=== PATIENT | male | born 1960 | race Two or more races ===

== ENCOUNTER 2020-08-27 14:04 | Inpatient (IN) | payer MEDICAID, OTHER ==
[~2020-08-27] VITALS: Ht 175.3 cm; Wt 63.1 kg
[2020-08-27] MEDS ORDERED: cefTRIAXone 1GM/50ML D5W 50 ML IV ONE (14:15)
[2020-08-27 15:05] LABS: Basophils # (auto) 0 10 ^3/uL (0-0.2); Basophils % (auto) 0.4 % (0.0-2.0); Eosinophils # (auto) 0.3 10 ^3/uL (0-0.8); Eosinophils % (auto) 3.8 % (0.0-7.0); Hematocrit 43.5 % (41.0-53.0); Hemoglobin 14.3 g/dL (13.5-17.5); Lymphocytes # (auto) 1.5 10 ^3/uL (0.4-5.4); Lymphocytes % (auto) 21.9 % (10.0-50.0); Mean Corpuscular Hemoglobin 27.4 pg (28.0-32.0); Mean Corpuscular Hgb Conc. 32.8 g/dL (32.0-36.0); Mean Corpuscular Volume 83.4 fL (80.0-100.0); Monocytes # (auto) 0.3 10 ^3/uL (0-1.3); Monocytes % (auto) 4.3 % (0.0-12.0); Neutrophils # (auto) 4.9 10 ^3/uL (1.6-8.6); Neutrophils % (auto) 69.6 % (37.0-80.0); Platelet Count (auto) 362 10^3/uL (140-450); Red Blood Cells 5.22 10^6/uL (4.5-5.90); Red Cell Distribution Width 15.4 % (11.8-14.3)
[2020-08-27 15:14] LABS: Albumin 3.3 g/dL (3.4-5.0); Anion Gap 5 (5-15); Aspartate Aminotransferase 12 U/L (15-37); Blood Urea Nitrogen 9 mg/dL (7-18); Calcium 8.7 mg/dL (8.5-10.1); Carbon Dioxide 23 mmol/L (21-32); Chloride 112 mmol/L (98-107); Glucose 94 mg/dL (74-106); Potassium 3.7 mmol/L (3.5-5.1); Sodium 140 mmol/L (136-145)
[2020-08-27 15:16] LABS: INR 0.97 (0.9-1.15); Partial Thromboplastin Time 23.9 sec (23.0-31.2)
[2020-08-27 15:24] LABS: Alanine Aminotransferase 14 U/L (16-61); Alkaline Phosphatase 149 U/L (45-117); Bilirubin, Total 0.2 mg/dL (0.2-1.0); CRP High Sensitivity 1.48 mg/dL (< 0.3); GFR African American 176 mL/min; GFR Non-African American 146 mL/min; Lactate Dehydrogenase 165 U/L (87-241); Total Protein 7.8 g/dL (6.4-8.2)
[2020-08-27] MEDS ORDERED: AZITHROMYCIN 500MG/ 250ML 250 ML IV ONE (16:00)
[2020-08-27] MEDS ORDERED: DexAMETHasone SOD PHOS 10MG/1ML VIAL INJ IV ONE (16:00)
[2020-08-27] MEDS ORDERED: ASPirin 81 mg TAB PO ONE (16:00)
[2020-08-27 16:31] LABS: Urine WBC None Seen /hpf (0 - 3)
[2020-08-27 16:38] LABS: Urine Bacteria NONE SEEN /hpf (None Seen); Urine Blood Negative /uL (Negative); Urine Specific Gravity 1.007 (1.001-1.035)
[2020-08-27] MEDS ORDERED: MORPHINE SULF INJ 2 MG/ML SYRINGE 1ML IV ONE (16:45)
[2020-08-27] MEDS ORDERED: ONDANSETRON HCL 4 MG/2 ML VIAL IV ONE (16:45)
[2020-08-27] MEDS ORDERED: ENOXAPARIN SOD 80 MG/0.8ML SYRINGE SC ONE (17:30)
[2020-08-27] MEDS ORDERED: IOHEXOL 350 MG/ML 100ML IJ ONE (17:46)
[2020-08-27] MEDS ORDERED: NITROGLYCERIN 0.4 MG SL TAB SL PRN (18:15)
[2020-08-27] MEDS ORDERED: MORPHINE SULF INJ 2 MG/ML SYRINGE 1ML IV PRN (18:15)
[2020-08-27] MEDS ORDERED: guaiFENesin-DM 100/10mg/5ml SYR PO PRN (23:30)
[2020-08-27] MEDS: ALBUTEROL SULF HFA 90MCG INH 200DOSE IN SCH (23:30)
[2020-08-28] MEDS: DexAMETHasone SOD PHOS 10MG/1ML VIAL INJ IV SCH ×2 (00:11→09:48)
[2020-08-28] MEDS: DOXYCYCLINE 100 MG TAB/CAP PO SCH ×3 (00:12→21:38)
[2020-08-28 00:46] VITALS: BP 93/62
[2020-08-28 07:47] LABS: Cholesterol 148 mg/dL (< 200); HDL Cholesterol 31 mg/dL (40-59); LDL Cholesterol 99 mg/dL (< 100); Triglycerides 113 mg/dL (< 150)
[2020-08-28 08:00] VITALS: BP 117/68
[2020-08-28] MEDS: ASPirin 81 mg TAB PO SCH (09:49)
[2020-08-28 10:35] LABS: Urine Bacteria NONE SEEN /hpf (None Seen); Urine Blood Negative /uL (Negative); Urine Specific Gravity 1.007 (1.001-1.035); Urine WBC <1 /hpf (0 - 3)
[2020-08-28] MEDS ORDERED: LORazepam 2MG/ML-1ML VIAL IV ONE (11:00)
[2020-08-28] MEDS: HYDROcodone-ACET 5/325MG TAB PO PRN ×2 (11:35→18:26)
[2020-08-28] MEDS ORDERED: ASPI-498 PO (14:21)
[2020-08-28] MEDS ORDERED: ASCO-22 PO (14:21)
[2020-08-28] MEDS ORDERED: HYDR-4833 PO (14:21)
[2020-08-28] MEDS ORDERED: TRAM50TA2 PO (14:21)
[2020-08-28] MEDS ORDERED: ATOR20TA50 PO (14:21)
[2020-08-28] MEDS ORDERED: ALBUAER3 IN (14:21)
[2020-08-28] MEDS ORDERED: NAP500T PO (14:21)
[2020-08-28] MEDS ORDERED: OMEP-260 PO (14:21)
[2020-08-28] MEDS ORDERED: AMLO5TAB15 PO (14:21)
[2020-08-28] MEDS ORDERED: ZINC220C8 PO (14:21)
[2020-08-28] MEDS ORDERED: ACET1CAP14 PO (14:21)
[2020-08-28] MEDS ORDERED: MULTTAB75 PO (14:21)
[2020-08-28 16:00] VITALS: BP 120/74
[2020-08-28 17:50] VITALS: BP 141/77
[2020-08-28] MEDS: ATORVASTATIN 20 MG TAB PO SCH (21:38)
[2020-08-29] VITALS: BP 110/70
[2020-08-29] MEDS: ALBUTEROL SULF HFA 90MCG INH 200DOSE IN SCH ×3 (07:57→22:20)
[2020-08-29] MEDS: HYDROcodone-ACET 5/325MG TAB PO PRN (07:57)
[2020-08-29 08:00] VITALS: BP 141/77
[2020-08-29] MEDS: ASPirin 81 mg TAB PO SCH (09:16)
[2020-08-29] MEDS: DexAMETHasone SOD PHOS 10MG/1ML VIAL INJ IV SCH (09:16)
[2020-08-29] MEDS: DOXYCYCLINE 100 MG TAB/CAP PO SCH ×2 (09:17→21:28)
[2020-08-29 16:00] VITALS: BP 116/65
[2020-08-29] MEDS: ATORVASTATIN 20 MG TAB PO SCH (21:28)
[2020-08-30] VITALS: BP 136/78
[2020-08-30] MEDS: ALBUTEROL SULF HFA 90MCG INH 200DOSE IN SCH ×2 (06:00→14:00)
[2020-08-30 08:24] VITALS: BP 133/78
[2020-08-30] MEDS: DexAMETHasone SOD PHOS 10MG/1ML VIAL INJ IV SCH (08:58)
[2020-08-30] MEDS: ASPirin 81 mg TAB PO SCH (08:58)
[2020-08-30] MEDS: DOXYCYCLINE 100 MG TAB/CAP PO SCH (08:58)
[2020-08-30] MEDS: HYDROcodone-ACET 5/325MG TAB PO PRN (08:59)
== END 2020-08-30 16:26 | DRG 45 ==
LOC: ER 14:04 → TELE 14:05 → TELE-EAST 22:57
PROVIDERS: ADMIT Internal Medicine; ATTEND Internal Medicine
DX: I63.9 Cerebral infarction, unspecified (principal); U07.1 COVID-19; J12.82 Pneumonia due to coronavirus disease 2019; I10 Essential (primary) hypertension; J20.9 Acute bronchitis, unspecified; Z89.511 Acquired absence of right leg below knee; G81.90 Hemiplegia, unspecified affecting unspecified side; M06.9 Rheumatoid arthritis, unspecified; I73.9 Peripheral vascular disease, unspecified
CPT/HCPCS: 36415; 70450; 70496; 70498; 71045; 71275; 80053; 80061; 81001; 82728; 83615; 83880; 84484; 85025; 85379; 85610; 85730; 86141; 87426; 93005; 93306; 93971; 97110; 97116; 97163; 97530; G0378; J0696; J1100; J2405